=== PATIENT | male | born 1955 | race Caucasian/White ===

== ENCOUNTER 2021-03-18 09:34 | Outpatient (CLI) | payer MEDICARE | END 2021-03-18 09:35 | disposition home or self-care (01) | LOC: CSHRAD 09:34 | PROVIDERS: ATTEND Neurological Surgery | DX: M48.062 Spinal stenosis, lumbar region with neurogenic claudication (principal); M47.816 Spondylosis without myelopathy or radiculopathy, lumbar region | CPT/HCPCS: 72110 ==

== ENCOUNTER 2022-03-26 09:48 | Outpatient (CLI) | payer OTHER | END 2022-03-26 09:49 | disposition home or self-care (01) | LOC: CSHRAD 09:48 | PROVIDERS: ATTEND Neurological Surgery | DX: M54.16 Radiculopathy, lumbar region (principal); M47.816 Spondylosis without myelopathy or radiculopathy, lumbar region | CPT/HCPCS: 72120 ==

== ENCOUNTER 2022-04-20 12:50 | Outpatient (CLI) | payer OTHER | END 2022-04-20 12:51 | disposition home or self-care (01) | LOC: CSHMRI 12:50 | PROVIDERS: ATTEND Neurological Surgery | DX: M47.12 Other spondylosis with myelopathy, cervical region (principal); M48.062 Spinal stenosis, lumbar region with neurogenic claudication; R42 Dizziness and giddiness; M47.812 Spondylosis without myelopathy or radiculopathy, cervical region; M47.816 Spondylosis without myelopathy or radiculopathy, lumbar region; M51.26 Other intervertebral disc displacement, lumbar region; M48.061 Spinal stenosis, lumbar region without neurogenic claudication | CPT/HCPCS: 70551; 72141; 72148 ==

== ENCOUNTER 2023-03-08 09:34 | Day surgery (SDC) | payer OTHER ==
[~2023-03-08 09:34] MED LIST: Iopamidol-M 200 41% 10 ML VIAL FS ONE
[2023-03-08] MEDS ORDERED: Sodium Bicarbonate 2.5 MEQ/5 ML VIAL ONE (10:04)
[2023-03-08] MEDS ORDERED: Lidocaine 1% PF 5 ML VIAL ONE (10:04)
== END 2023-03-08 12:00 | disposition home or self-care (01) ==
LOC: CSHRAD 09:34
PROVIDERS: ATTEND Nurse Practitioner Family
PROC: B02BYZZ Computerized Tomography (CT Scan) of Spinal Cord using Other Contrast (ICD-10-PCS; principal; 2023-03-08)
DX: M47.16 Other spondylosis with myelopathy, lumbar region (principal); M51.16 Intervertebral disc disorders with radiculopathy, lumbar region; M96.1 Postlaminectomy syndrome, not elsewhere classified; I10 Essential (primary) hypertension; E78.5 Hyperlipidemia, unspecified; K21.9 Gastro-esophageal reflux disease without esophagitis; J44.9 Chronic obstructive pulmonary disease, unspecified; G47.00 Insomnia, unspecified; Z87.891 Personal history of nicotine dependence; Z98.890 Other specified postprocedural states; Z88.8 Allergy status to other drugs, medicaments and biological substances; Z79.899 Other long term (current) drug therapy
CPT/HCPCS: 62304; 72132; Q9966